=== PATIENT | female | born 2000 | race Two or more races ===

== ENCOUNTER 2024-11-20 16:38 | Emergency (ER) | payer MEDICAID ==
[~2024-11-20] VITALS: Ht 152.4 cm; Wt 59.0 kg
== END 2024-11-20 17:53 | disposition home or self-care (01) ==
LOC: ER 16:38
DX: Z34.83 Encounter for supervision of other normal pregnancy, third trimester (principal); Z3A.33 33 weeks gestation of pregnancy; Z59.89 Other problems related to housing and economic circumstances
CPT/HCPCS: 76815; 99282-25